=== PATIENT | female | born 1965 | race Caucasian/White ===

== ENCOUNTER 2025-03-07 23:44 | Emergency (ER) | payer SELFPAY ==
[~2025-03-07] VITALS: Ht 167.6 cm; Wt 77.1 kg
[2025-03-08] VITALS: TEMP 98.5
[2025-03-08 00:10] LABS: BASOPHILS % 0.3 % (0.0-1.0); EOSINOPHILS % 0.6 % (0.0-6.0); HEMATOCRIT 42.3 % (34.2-44.1); HEMOGLOBIN 14.4 g/dL (12.0-16.0); LYMPHOCYTES # (AUTO) 3.5 (1.0-3.2); LYMPHOCYTES % 48.6 % (18.0-39.1); MEAN CORPUSCULAR HEMOGLOBIN 33.3 pg (28-32); MEAN CORPUSCULAR VOLUME 97.9 fL (81-99); MONOCYTES # (AUTO) 0.5 (0.2-0.8); MONOCYTES % 6.4 % (4.4-11.3); NEUTROPHILS # (AUTO) 3.2 (2.1-6.9); NEUTROPHILS % 43.8 % (38.7-80.0); RED BLOOD COUNT 4.32 x10e6/uL (3.6-5.1); RED CELL DISTRIBUTION WIDTH 14.6 % (11.7-14.4); WHITE BLOOD COUNT 7.18 x10e3/uL (4.8-10.8)
[2025-03-08 00:18] LABS: PLATELET COUNT 98 x10e3/uL (140-360)
[2025-03-08] MEDS: SODIUM CHLORIDE 0.9% 1000ML 1,000 ML IV STA (00:19)
[2025-03-08] MEDS: DIAZEPAM INJ 5 MG/ML 2 ML IV STA (00:20)
[2025-03-08 00:29] LABS: ALBUMIN/GLOBULIN RATIO 1.4 (0.8-2.0); ANION GAP 24.4 mmol/L (8-16); BILIRUBIN,TOTAL 1.3 mg/dL (0.2-1.2); CALCIUM 8.3 mg/dL (8.4-10.2); CREATININE, SERUM 0.66 mg/dL (0.57-1.11); TOTAL PROTEIN 6.8 g/dL (6.5-8.1)
[2025-03-08 00:38] LABS: POTASSIUM 3.4 mmol/L (3.5-5.1)
[2025-03-08] MEDS: ONDANSETRON HCL INJ 2MG/ML 2ML 2 MG/ML VIAL IV STA ×2 (01:43→06:43)
[2025-03-08] MEDS: ACETAMINOPHEN 325 MG TAB PO STA (01:44)
[2025-03-08] MEDS: CHLORDIAZEPOXIDE HCL 25 MG CAP PO ONE ×2 (02:54→07:40)
[2025-03-08 07:51] VITALS: PULSE 89; RESP 16; O2SAT 99
== END 2025-03-08 11:36 | disposition home or self-care (01) ==
LOC: ER 23:48
DX: R60.9 Edema, unspecified (principal); F10.129 Alcohol abuse with intoxication, unspecified
CPT/HCPCS: 36415; 80053; 80320; 82140; 85025; 99284; J2405; J3360; J7030